=== PATIENT | male | born 1980 | race Caucasian/White ===

== ENCOUNTER 2023-12-16 09:26 | Emergency (ER) | payer OTHER, SELFPAY ==
--- NOTE | ~2023-12-16 | CT_ITS ---
EXAMINATION: CT ABDOMEN AND PELVIS WITHOUT CONTRAST CLINICAL INFORMATION: Flank pain. History of kidney stones. COMPARISON: 05/19/2016 TECHNIQUE: Multidetector volumetric imaging was performed from the superior aspect of the liver through the pubic symphysis. Sagittal and coronal reformatted images were obtained on the technologist's workstation. This CT examination was performed using dose optimization techniques as appropriate, variously including the following: *Automated exposure control *Adjustment of mA and/or kV according to patient size (this includes techniques or standardized protocols for targeted exams where dose is matched to indication/reason for exam; i.e. extremities or head) *Use of iterative reconstruction technique DLP: 681 mGy-cm FINDINGS: LUNG BASES: The visualized lung bases are unremarkable. LIVER, GALLBLADDER, AND BILIARY TREE: The liver is normal in size, shape, and attenuation. No focal hepatic lesion or biliary ductal dilatation is present. A gallstone the gallbladder. No adjacent inflammatory change. PANCREAS: Unremarkable. SPLEEN: Unremarkable. ADRENAL GLANDS: Unremarkable. KIDNEYS AND URETERS: There is a 1 mm stone in the lower right kidney which is nonobstructive. In the right kidney no hydronephrosis or suspicious mass or perinephric collection. In the left kidney there is mild distention of the left renal pelvis and left ureter. There is a 3 mm stone in the bladder just past the left UVJ with resultant mild distention of the left ureter. No evidence for left renal mass or perinephric collection. BLADDER: 3 mm stone in the bladder just past the left UVJ. GASTROINTESTINAL TRACT: No bowel obstruction or right or left lower quadrant inflammatory change. Moderate stool burden present. Appendix normal. ABDOMINAL WALL: No significant hernia is appreciated. LYMPH NODES: Normal. VASCULAR: Unremarkable. PELVIC VISCERA: Unremarkable OSSEOUS STRUCTURES: There is mild spondylitic change in the lower thoracic spine. No fracture. CT/CT abdomen pelvis wo IV con IMPRESSION: Small stone in the bladder just past the left UVJ with resultant left ureteral pyelocaliectasis. Fleischner guidelines were followed.
[2023-12-16 09:41] VITALS: BP 126/86; PULSE 71; RESP 18; TEMP 36.5; O2SAT 97; BMI 31.7
[2023-12-16] MEDS: Ondansetron ODT 4 MG TAB.RAPDIS TRANSLINGU ×2 (09:48→17:58)
[2023-12-16 09:53] LABS: MANUAL DIFF FLAG NO
[2023-12-16 09:55] LABS: Basophils Absolute Auto 0.1 X10*3/uL (0.0-0.2); Basophils Percent Auto 0.8 % (0-2); Eosinophils Absolute Auto 0.1 X10*3/uL (0.0-0.4); Eosinophils Percent Auto 1.4 % (0-4); Hematocrit 40.5 % (42.0-52.0); Hemoglobin 13.9 g/dl (14.0-18.0); Imm Gran Abs Auto 0.02 X10*3/uL (0.00-0.03); Imm Gran Pct Auto 0.3 % (0.0-0.4); Lymphocytes Absolute Auto 1.4 X10*3/uL (1.2-4.9); Lymphocytes Percent Auto 21.5 % (20-40); Mean Corpuscular HGB Conc 34.3 g/dl (31.0-36.0); Mean Corpuscular Hemoglobin 30.8 pg (27.0-33.0); Mean Corpuscular Volume 89.6 fL (80.0-98.0); Mean Platelet Volume 8.4 fL (9.4-12.4); Monocytes Absolute Auto 0.3 X10*3/uL (0.1-1.2); Monocytes Percent Auto 4.9 % (2-11); Neutrophils Absolute Auto 4.6 x10*3/uL (2.0-8.3); Neutrophils Percent Auto 71.1 % (45-73); Platelet Count 196 X10*3/uL (160-400); Red Blood Count 4.52 X10*6/uL (4.60-5.80); Red Cell Distribution Width 11.8 % (11.0-16.0); White Blood Count 6.5 X10*3/uL (4.8-10.8)
[2023-12-16 10:12] LABS: Anion Gap 9 (12-20); Blood Urea Nitrogen 16 mg/dL (9-16); Calcium 9.2 mg/dL (8.4-10.2); Carbon Dioxide 26 mmol/L (22-29); Chloride 104 mmol/L (96-108); Creatinine Clr Calc Pharmacy 129.5; Estimated Glomerular Filt Rate > 60; Glucose Random 103 mg/dL (60-115); Potassium 4.1 mmol/L (3.3-5.1); Sodium 135 mmol/L (135-145)
--- NOTE | 2023-12-16 10:24 | PC.NURSE ---
Pt presents to ED from home, reports left flank pain starting yesterday, worsening. Reports pain is 11/10, sharp and aching. Reports difficulty urinating, blood-tinged urine. Has hx of kidney stones, reports this feels like that. Also having nausea, no vomiting, diarrhea, fevers. Alert and oriented, restless, breathing even and unlabored, skin clammy
[2023-12-16] MEDS: Ketorolac Tromethamine 30 MG/ML VIAL IVPUSH (11:50)
[2023-12-16 11:55] LABS: Appearance Urine Cloudy; Color Urine Yellow; Glucose Urine UA Negative (Negative); Leukocyte Esterase Urine Small (1+) (Negative); Nitrite Urine Negative (Negative); Specific Gravity - Urine 1.025 (1.005-1.025); UMIC TRIGGER UACC YES; Urine Blood Large (3+) (Negative); Urine Ketones Trace mg/dL (Negative); Urine Protein 30 (1+) mg/dL (Neg-Trace)
--- NOTE | 2023-12-16 12:04 | ED.MALEGU ---
HPI - Male Genitourinary General Chief complaint: Urogenital-Male Stated complaint: Kidney stones? Time Seen by Provider: 12/16/23 11:56 Source: patient Mode of arrival: ambulatory Limitations: no limitations History of Present Illness HPI Narrative: This is a 43-year-old man with a past medical history of nephrolithiasis, history of ureteral stents, history of vasectomy who presents for evaluation of left-sided flank pain. Patient states that is started abruptly this morning. Patient reports associated nausea with vomiting. He states this feels similar to previous kidney stones. Patient reports decreased urinary output. Patient reports drinking half a gal of water today. He states no dysuria or urinary frequency/urgency. He states no falls or trauma. He states no changes to bowel habits. He states no fevers or chills. He states no chest pain dyspnea. Related Data Previous Rx's ?Medication ?Instructions ?Recorded ondansetron 4 mg disintegrating 4 mg PO Q8H PRN nausea and 12/16/23 tablet vomiting #10 tabs oxycodone 5 mg tablet 5 mg PO Q8H PRN breakthrough pain 12/16/23 #5 tabs Allergies Allergy/AdvReac Type Severity Reaction Status Date / Time No Known Allergies Allergy Verified 12/16/23 09:45 Review of Systems Review of Systems: ROS as per [facility] Social History Social History Smoked in Last 30 Days: No Use of substances other than those prescribed or required for medical reasons: No Advance Directives: No Physical Exam Vital Signs: Vital Signs: Last Vital Signs Temp 98.7 F 12/16/23 18:05 Pulse 72 12/16/23 18:05 Resp 16 12/16/23 18:05 BP 106/55 L 12/16/23 18:05 Pulse Ox 98 12/16/23 18:05 O2 Del Method Room Air 12/16/23 18:05 BMI result Body Mass Index 31.7 Gen: NAD, AOx3 HEENT: NCAT, EOMI, normal conjunctiva CV: RRR Pulm: CTAB, no increased work of breathing GI: Soft, NTND, no rebound, guarding or rigidity, no bilateral CVA tenderness Neuro: Grossly non focal Medications Administered Discontinued Medications Generic Name Dose Route Start Last Admin Trade Name Freq PRN Reason Stop Dose Admin Sodium Chloride 1,000 mls @ 999 mls/hr 12/16/23 11:45 12/16/23 14:54 Ns IVCONT 12/16/23 12:45 Infused .Q1H1M LINH Infusion Ketorolac Tromethamine 30 mg 12/16/23 11:45 12/16/23 11:50 Ketorolac Tromethamine 30 Mg/Ml Vial IVPUSH 12/16/23 11:46 30 mg ONCE ONE Administration Morphine Sulfate 4 mg 12/16/23 12:04 12/16/23 12:07 Morphine Sulfate 4 Mg/Ml Cartridge IVPUSH 12/16/23 12:05 4 mg ONCE ONE Administration Protocol Morphine Sulfate 4 mg 12/16/23 13:47 12/16/23 13:59 Morphine Sulfate 4 Mg/Ml Cartridge IVPUSH 12/16/23 13:48 4 mg ONCE ONE Administration Protocol Ondansetron HCl 4 mg 12/16/23 09:46 12/16/23 09:48 Ondansetron Odt 4 Mg Tab.Rapdis TRANSLINGU 12/16/23 09:47 4 mg ONCE ONE Administration Ondansetron HCl 4 mg 12/16/23 17:38 12/16/23 17:58 Ondansetron Odt 4 Mg Tab.Rapdis TRANSLINGU 12/16/23 17:39 4 mg ONCE ONE Administration Oxycodone HCl 5 mg 12/16/23 13:47 12/16/23 13:59 Oxycodone Hcl Immed Release 5 Mg Tablet PO 12/16/23 13:48 5 mg ONCE ONE Administration Medical Decision Making Medical Decision Making MDM Narrative: Differential diagnosis includes, but is not limited to nephrolithiasis, ureterolithiasis, hydronephrosis, acute kidney injury, electrolyte abnormality. Patient is afebrile and hemodynamically stable on room air . Exam is benign and reassuring. Patient is provided Toradol, Zofran and IV fluids prior to my assessment. 1210 - Patient reports his nausea has significantly improved. He states Toradol has ?dulled his pain ? but he reports ongoing pain. Patient is provided 4 mg IV morphine at this time. I reviewed and interpreted labs, which are notable for stable anemia of 13.9. Basic metabolic panel is noncontributory. Urinalysis is notable for RBCs. Urinalysis is not consistent with urinary tract infection given history lacking fever, dysuria or urinary frequency/urgency. On re-examination, patient is well-appearing and in no acute distress. ?Patient states symptoms have resolved. ?There is no indication for further emergent evaluation in this otherwise well-appearing patient as above. ?Patient is provided written and verbal instructions, educational materials, recommendations for outpatient follow-up, strict return precautions and teach back is performed. ?Patient states understanding and agreement with plan of care. ?Patient is discharged home in stable and improved condition. Admission/Observation Consideration of admission/observation: Escalation of care including admission/observation considered Lab Data MDM Lab Attestation statement: I reviewed the patient's lab results. 12/16/23 09:49 12/16/23 09:49 Labs: Lab Results 12/16/23 12/16/23 Range/Units 09:49 11:46 WBC 6.5 (4.8-10.8) X10*3/uL RBC 4.52 L (4.60-5.80) X10*6/uL Hgb 13.9 L (14.0-18.0) g/dl Hct 40.5 L (42.0-52.0) % MCV 89.6 (80.0-98.0) fL MCH 30.8 (27.0-33.0) pg MCHC 34.3 (31.0-36.0) g/dl RDW 11.8 (11.0-16.0) % Plt Count 196 (160-400) X10*3/uL MPV 8.4 L (9.4-12.4) fL Immature Gran % (Auto) 0.3 (0.0-0.4) % Neut % (Auto) 71.1 (45-73) % Lymph % (Auto) 21.5 (20-40) % Grainger % (Auto) 4.9 (2-11) % Eos % (Auto) 1.4 (0-4) % Baso % (Auto) 0.8 (0-2) % Lymph # (Auto) 1.4 (1.2-4.9) X10*3/uL Grainger # (Auto) 0.3 (0.1-1.2) X10*3/uL Eos # (Auto) 0.1 (0.0-0.4) X10*3/uL Baso # (Auto) 0.1 (0.0-0.2) X10*3/uL Abs Immat Gran (auto) 0.02 (0.00-0.03) X10*3/uL Absolute Neuts (auto) 4.6 (2.0-8.3) x10*3/uL Absolute Nucleated RBC 0.000 (0.0-0.012) X10*3/uL Nucleated RBC % (auto) 0.0 (0.0-0.2) /100WBC Sodium 135 (135-145) mmol/L Potassium 4.1 (3.3-5.1) mmol/L Chloride 104 (96-108) mmol/L Carbon Dioxide 26 (22-29) mmol/L Anion Gap 9 L (12-20) BUN 16 (9-16) mg/dL Creatinine 0.89 (0.5-1.4) mg/dL Estim Creat Clear Calc 129.5 Estimated GFR > 60 Random Glucose 103 (60-115) mg/dL Calcium 9.2 (8.4-10.2) mg/dL Urine Color Yellow Urine Appearance Cloudy Urine pH 6.0 (5.0-9.0) Ur Specific Simpson 1.025 (1.005-1.025) Urine Protein 30 (1+) H (Neg-Trace) mg/dL Urine Glucose (UA) Negative (Negative) mg/dL Urine Ketones Trace (Negative) mg/dL Urine Blood Large (3+) H (Negative) Urine Nitrite Negative (Negative) Ur Leukocyte Esterase Small (1+) H (Negative) Urine RBC >20 H (0-2) /HPF Urine WBC 11-20 H (0-5) /HPF Ur Squamous Epith Cells 0-2 (0-2) /HPF Urine Bacteria None Seen (None Seen) Hyaline Casts 0-2 (0-2) /LPF Radiology Impression Discussion of test interpretation with radiology: I have reviewed the radiologist's reading. Radiologist Impression: CT/CT abdomen pelvis wo IV con IMPRESSION: Small stone in the bladder just past the left UVJ with resultant left ureteral pyelocaliectasis. Fleischner guidelines were followed. Dictated By: Montana Hassan MD Signed By: <Electronically signed by Montana Hassan MD in OV> 12/16/23 9551 Discharge Plan Discharge Clinical Impression: Nephrolithiasis Patient Disposition: Home, Self-Care Instructions: Kidney Stones (ED) Additional Instructions: You were seen and evaluated in the emergency room. Your vital signs were normal and he did not have fever. ? Your blood work was normal. Your CT scan showed a small 3 mm kidney stone near your bladder, which is less likely reason why you are experiencing pain. Please take 600 mg ibuprofen every 6 hours with food and water as needed for pain. Please take a 1000 mg Tylenol every 8 hours as needed for additional pain relief. You are given a prescription for nausea medicine. Please take as directed. You are given a prescription for oxycodone. Please take as directed only for pain not responding to ibuprofen and Tylenol. Please note drink alcohol, drive, operate heavy machinery or make any importance/legal decisions while taking this medication. Please follow-up with your primary care doctor in the next 5-7 days. ?Please return to the emergency room if you develop any worsening symptoms including, but not limited to fever, chest pain or difficulty breathing. ? Prescriptions: New oxycodone 5 mg tablet 5 mg PO Q8H PRN (Reason: breakthrough pain) Qty: 5 0RF Rx Instructions: Partial Fill upon patient request. ondansetron 4 mg tablet,disintegrating 4 mg PO Q8H PRN (Reason: nausea and vomiting) Qty: 10 0RF Interventions: ED Discharge Assessment Last Done: 12/16/23 18:05 Discharge Date/Time: 12/16/23 18:06 Print Language: Ethiopian
[2023-12-16 12:05] LABS: Bacteria Urine None Seen (None Seen); Hyaline Casts Urine 0-2 /LPF (0-2); RBC Urine >20 /HPF (0-2); Squamous Epithelial Cell Urine 0-2 /HPF (0-2); UACC Culture Trigger YES
[2023-12-16] MEDS: 0.9 % Sodium Chloride 1,000 ML 999 ML IVCONT (12:05)
[2023-12-16 12:07] VITALS: RESP 18
[2023-12-16] MEDS: Morphine Sulfate 4 MG/ML CARTRIDGE IVPUSH ×2 (12:07→13:59)
[2023-12-16 13:59] VITALS: RESP 16
[2023-12-16] MEDS: oxyCODONE HCl Immed Release 5 MG TABLET PO (13:59)
[2023-12-16 14:45] VITALS: BP 104/63; PULSE 78; RESP 16; O2SAT 98
[2023-12-16 14:54] VITALS: BP 101/58; PULSE 71; RESP 13; O2SAT 96
[2023-12-16 18:05] VITALS: BP 106/55; PULSE 72; RESP 16; TEMP 37.1; O2SAT 98
== END 2023-12-16 18:06 | disposition home or self-care (01) ==
PROVIDERS: Emergency Provider Emergency Medicine
DX: N20.0 Calculus of kidney (principal); R10.32 Left lower quadrant pain; R33.9 Retention of urine, unspecified; R11.2 Nausea with vomiting, unspecified; Z79.899 Other long term (current) drug therapy
CPT/HCPCS: 36415; 74176; 80048; 81001; 85025; 87086; 96361; 96374; 96375; 96376; 99285; J1885; J2270